=== PATIENT | female | born 1970 | race Two or more races ===

== ENCOUNTER 2019-12-29 22:51 | Emergency (ER) | payer SELFPAY ==
[~2019-12-29] VITALS: Ht 160 cm; Wt 68.0 kg
[2019-12-29 23:51] LABS: Urine WBC None Seen /hpf (0 - 5)
[2019-12-30 00:15] LABS: Amphetamine Screen, Urine NEGATIVE (NEGATIVE); Barbiturate Scree,Urine NEGATIVE (NEGATIVE); Benzodiazephine Screen, Urine NEGATIVE (NEGATIVE); Cannabinoid Screen, Urine POSITIVE (NEGATIVE); Cocaine Screen, Urine NEGATIVE (NEGATIVE); Phencyclidine Screen, Urine NEGATIVE (NEGATIVE)
[2019-12-30 00:16] LABS: Urine Bacteria NONE SEEN /hpf (None Seen); Urine Blood Negative /uL (Negative); Urine Specific Gravity 1.004 (1.001-1.035)
[2019-12-30 00:23] LABS: Opiate Scree,Urine NEGATIVE (NEGATIVE)
[2019-12-30 01:56] VITALS: BP 141/82
== END 2019-12-30 02:04 ==
LOC: ER 22:55
DX: S16.1XXA Strain of muscle, fascia and tendon at neck level, initial encounter (principal); S39.012A Strain of muscle, fascia and tendon of lower back, initial encounter; S29.012A Strain of muscle and tendon of back wall of thorax, initial encounter; S30.1XXA Contusion of abdominal wall, initial encounter; S05.11XA Contusion of eyeball and orbital tissues, right eye, initial encounter; S70.11XA Contusion of right thigh, initial encounter; S22.079D Unspecified fracture of T9-T10 vertebra, subsequent encounter for fracture with routine healing; R78.0 Finding of alcohol in blood; Y04.0XXA Assault by unarmed brawl or fight, initial encounter; Y93.89 Activity, other specified; Y92.89 Other specified places as the place of occurrence of the external cause; Y99.8 Other external cause status; Z88.5 Allergy status to narcotic agent; Z88.6 Allergy status to analgesic agent
CPT/HCPCS: 36415; 70450; 70486; 72125; 72128; 72131; 80307; 80320; 81001; 81025